=== PATIENT | male | born 1950 | race Caucasian/White ===

== ENCOUNTER → 2016-11-19 | Outpatient (CLI) | payer BC | LOC: KOH-I 11:52 | DX: R05 Cough (principal) | CPT/HCPCS: 71020 ==

== ENCOUNTER → 2016-12-06 | Outpatient (CLI) | payer BC | LOC: KOH-I 10:22 | DX: M54.5 Low back pain (principal); M47.816 Spondylosis without myelopathy or radiculopathy, lumbar region | CPT/HCPCS: 72110 ==

== ENCOUNTER → 2020-09-03 | Outpatient (CLI) | payer MEDICARE, BC ==
[~2020-09-03] MED LIST: ANTIVERT 12.512.5 MG PO; ASPIRIN325 MG PO; LEVAQUIN750 MG PO; MEDROL DOSEPAK 24 MG PO; MYCOSTATIN100000 UTS PO; TAMIFLU75 MG PO; VENTOLIN HFA 66.7 GM INH; XARELTO2.5 MG PO
== END ==
LOC: KOH-I 10:00
DX: I48.91 Unspecified atrial fibrillation (principal)
CPT/HCPCS: 71046

== ENCOUNTER → 2021-07-30 | Outpatient (CLI) | payer MEDICARE, BC | LOC: KOH-I 15:00 | DX: Z87.891 Personal history of nicotine dependence (principal); R91.8 Other nonspecific abnormal finding of lung field | CPT/HCPCS: 71271 ==

== ENCOUNTER → 2021-09-18 | Outpatient (CLI) | payer MEDICARE, BC ==
[~2021-09-18] VITALS: Ht 177.8 cm; Wt 68.0 kg
== END ==
LOC: EROP 11:02
DX: U07.1 COVID-19 (principal); Z23 Encounter for immunization; I11.9 Hypertensive heart disease without heart failure; I51.9 Heart disease, unspecified
CPT/HCPCS: M0247; Q0247